=== PATIENT | female | born 1960 | race Two or more races ===

== ENCOUNTER → 2020-07-03 | Outpatient (CLI) | payer OTHER ==
[~2020-07-03] MED LIST: CONTRAST GIVEN. MC PRN; IOHEXOL 240 MG/ML 50ML VIAL. PO ONE; IOHEXOL 300 MG/ML 100ML VIAL. IV ONE
--- NOTE | 2020-07-03 14:36 | RAD ---
EXAM: CT Abdomen and Pelvis with IV contrast CLINICAL HISTORY: Right OVARIAN MASS COMPARISON: none TECHNIQUE: Helical CT of the abdomen and pelvis was performed following the administration of IV cont rast. Axial, coronal and sagittal reformatted images were generated. ---PQRS compliance statement - One or more of the following individualized dose reduction techniques were utilized for this study: 1. Automated exposure control 2. Adjustment of the mA and/or kV according to patient size 3. Use of iterative reconstruction technique--- FINDINGS: Lower chest: Linear opacities in the lingula and lower lobes likely scarring/atelectasis. Abdomen and pelvis: Liver and biliary system: Hepatic hypoattenuation, likely fatty liver. Cholecystectomy clips are see n. No biliary ductal dilatation. Spleen: Spleen is normal. Pancreas: Mild fatty replacement of the pancreatic head, pancreas is otherwise unremarkable. Adrenal glands: Adrenal glands are unremarkable. Kidneys: Symmetric nephrograms. Intermittent left renal cortical scarring at the upper pole. No hydro nephrosis or hydroureter. Lymph nodes/retroperitoneum: No abdominal or pelvic lymphadenopathy. Prominent pelvic sidewall lymph nodes are seen, for example a right pelvic sidewall lymph node measures 8 mm short axis and a left me asures 7 mm short axis. Vessels: Aorta is normal in caliber. Bowel/Peritoneal cavity: Colonic diverticulosis throughout the colon without evidence for acute diver ticulitis. Appendix is normal. No abdominal or pelvic ascites. Exophytic lesion at the anterior wall of the uterus likely fibroid. A right adnexal mass is seen yandy uring approximately 14.5 x 11 x 14 cm with internal septation and high in the low density components suggesting mixed cystic components. Abdominal wall: Small hiatal hernia. Bladder: The bladder is unremarkable. Bones: No aggressive osseous lesion is seen. IMPRESSION: 1. Right adnexal mass measuring approximately 14.5 cm containing cystic components. Although endomet rioma or other benign cystic mass may have this appearance, given the size, malignancy including ovar madeleine cystadenocarcinoma is a consideration. Therefore further evaluation with MRI and gynecologic/onco logic evaluation is recommended. 2. No abdominal or pelvic lymphadenopathy. However a few mildly prominent iliac chain/pelvic sidewal l lymph nodes are seen measuring 7-8 mm in short axis. Recommend close attention on follow-up. Electronically signed by: Daryl Echeverria MD (07/03/2020 2:34 PM) [facility]
== END ==
LOC: CT 11:25
PROVIDERS: ATTEND Family Medicine
DX: N83.8 Other noninflammatory disorders of ovary, fallopian tube and broad ligament (principal); N85.8 Other specified noninflammatory disorders of uterus; K86.89 Other specified diseases of pancreas; K57.30 Diverticulosis of large intestine without perforation or abscess without bleeding; K44.9 Diaphragmatic hernia without obstruction or gangrene; N28.89 Other specified disorders of kidney and ureter
CPT/HCPCS: 74177; Q9966; Q9967